=== PATIENT | female | born 1990 | race Caucasian/White ===

== ENCOUNTER 2016-12-13 16:51 | Inpatient (IN) | payer OTHER ==
[~2016-12-13] VITALS: Ht 167.6 cm; Wt 52.2 kg
[2016-12-14 01:08] VITALS: BP 117/82
[2016-12-14] MEDS ORDERED: MAG HYDROX/AL HYDROX/SIMETH 30 ML LIQUID UDC PO PRN (02:15)
[2016-12-14] MEDS ORDERED: MAGNESIUM HYDROXIDE 30 ML LIQUID UDC PO PRN (02:15)
[2016-12-14] MEDS ORDERED: BUPRENORPHINE HCL 2 MG TAB.SUBL SL PRN (02:15)
[2016-12-14] MEDS ORDERED: CLONIDINE HCL 0.1 MG TABLET PO PRN (02:15)
[2016-12-14] MEDS ORDERED: LOPERAMIDE HCL 2 MG CAPSULE PO PRN ×2 (02:15)
[2016-12-14] MEDS ORDERED: DIAZEPAM 10 MG TABLET PO PRN ×2 (02:15)
[2016-12-14] MEDS ORDERED: HYDROXYZINE PAMOATE 25 MG CAPSULE PO PRN (02:15)
[2016-12-14] MEDS ORDERED: DICYCLOMINE HCL 20 MG TABLET PO PRN (02:15)
[2016-12-14] MEDS ORDERED: ONDANSETRON ODT 4 MG TAB.RAPDIS SL PRN (02:15)
[2016-12-14] MEDS ORDERED: DIAZEPAM 5 MG TABLET PO PRN (02:15)
[2016-12-14] MEDS ORDERED: METHOCARBAMOL 750 MG TABLET PO PRN (02:15)
[2016-12-14] MEDS ORDERED: diphenhydrAMINE 50 MG CAPSULE PO PRN (02:15)
[2016-12-14] MEDS ORDERED: LORAZEPAM 2 MG/1 ML VIAL IM PRN (02:15)
[2016-12-14] MEDS ORDERED: PROMETHAZINE HCL 25 MG/1 ML VIAL IM PRN (02:15)
[2016-12-14] MEDS ORDERED: MIRALAX 17 GM POWD.PACK PO PRN (02:15)
[2016-12-14] MEDS ORDERED: IBUPROFEN 400 MG TABLET PO PRN (02:15)
[2016-12-14 04:00] VITALS: BP 99/60
[2016-12-14 08:00] VITALS: BP 108/69
[2016-12-14 08:17] LABS: BASOPHILS # (AUTO) 0.1 K/uL (0.0-0.2); BASOPHILS % (AUTO) 0.9 % (0.0-2.0); EOSINOPHILS # (AUTO) 0.1 K/uL (0.0-0.7); EOSINOPHILS % (AUTO) 1.5 % (0.0-7.0); HEMATOCRIT 36.7 % (37.0-47.0); HEMOGLOBIN 12.5 g/dL (12.0-16.0); LYMPHOCYTES # (AUTO) 1.8 K/uL (0.8-4.8); LYMPHOCYTES % (AUTO) 29.1 % (20.5-51.5); MEAN CORPUSCULAR HGB CONC 34 g/dL (32.0-37.0); MEAN CORPUSCULAR VOLUME 85.5 fL (81.0-99.0); MONOCYTES # (AUTO) 0.6 K/uL (0.1-1.30); MONOCYTES % (AUTO) 9.9 % (0.0-11.0); NEUTROPHILS # (AUTO) 3.7 K/uL (1.8-8.9); NEUTROPHILS % (AUTO) 58.6 % (38.5-71.5); PLATELET COUNT (AUTO) 223 K/uL (150-450); RED BLOOD CELL COUNT(AUTO) 4.29 MIL/uL (4.20-5.40); RED CELL DISTRIBUTION WIDTH 12.7 % (11.5-14.5); WHITE BLOOD COUNT (AUTO) 6.3 K/uL (4.0-11.2)
[2016-12-14 09:02] LABS: ETHANOL < 3 MG/DL (0-0)
[2016-12-14 09:04] LABS: ALANINE AMINOTRANSFERASE 43 U/L (14-59); ALBUMIN 3.3 g/dL (3.4-5.0); ALKALINE PHOSPHATASE 76 U/L (50-136); AMYLASE 20 U/L (25-115); ASPARTATE AMINOTRANSFERASE 33 U/L (15-37); BILIRUBIN,TOTAL 0.4 mg/dL (0.2-1.0); CALCIUM 8.4 mg/dL (8.5-10.1); CARBON DIOXIDE 28 mmol/L (21-32); CHLORIDE 101 mmol/L (98-107); CREATININE 0.6 mg/dL (0.6-1.3); GFR 122 mL/min (>60); GLUCOSE 85 mg/dL (74-106); LIPASE 53 U/L (73-393); MAGNESIUM 1.7 mg/dL (1.8-2.4); POTASSIUM 3.9 mmol/L (3.5-5.1); SODIUM SERUM 137 mmol/L (136-145); TOTAL PROTEIN, SERUM 6.8 g/dL (6.4-8.2); UREA NITROGEN, BLOOD 8 mg/dL (7-18)
[2016-12-14 09:17] LABS: HIV-1 p24 ANTIGEN NON REACTIVE (NONREACTIVE); HIV-1/2 ANTIBODY NON REACTIVE (NONREACTIVE)
[2016-12-14] MEDS ORDERED: GABA-534 PO ×2 (09:38)
[2016-12-14 12:00] VITALS: BP 113/65
[2016-12-14] MEDS ORDERED: LORAZEPAM 1 MG TABLET PO PRN ×2 (12:45)
[2016-12-14] MEDS: LORAZEPAM 1 MG TABLET PO SCH ×5 (13:00→21:29)
[2016-12-14] MEDS: BUPRENORPHINE HCL 2 MG TAB.SUBL SL SCH ×3 (13:00→21:28)
[2016-12-14 14:00] LABS: *AMPHETAMINE, URINE POSITIVE (NEGATIVE); *BARBITURATE, URINE NEGATIVE (NEGATIVE); *CANNABINOID, URINE NEGATIVE (NEGATIVE); *COCCAINE, URINE NEGATIVE (NEGATIVE); *OPIATE, URINE POSITIVE (NEGATIVE); *PHENCYCLIDINE SCREEN,URINE NEGATIVE (NEGATIVE)
[2016-12-14] MEDS: GABAPENTIN 300 MG CAPSULE PO SCH ×2 (15:00→21:28)
[2016-12-14 15:30] LABS: *URINE HCG, QUAL NEGATIVE (NEGATIVE)
[2016-12-14 16:00] VITALS: BP 116/65
[2016-12-14] MEDS ORDERED: MAGNESIUM OXIDE 400 MG TABLET PO ONE (16:36)
[2016-12-14] MEDS: MULTIVITAMINS,THERAPEUTIC TABLET PO SCH (18:08)
[2016-12-14 20:00] VITALS: BP 115/77
[2016-12-15] VITALS: BP 98/67
[2016-12-15] MEDS ORDERED: [UNRECOGNIZED DRUG - OTHER] (07:04)
[2016-12-15 08:00] VITALS: BP 104/65
[2016-12-15] MEDS ORDERED: TUBERCULIN,PURIF.PROT.DERIV. 5 TU/0.1 ML TEST ID ONE (09:00)
[2016-12-15] MEDS ORDERED: BUPRENORPHINE HCL 2 MG TAB.SUBL SL SCH (09:00)
[2016-12-15] MEDS: MULTIVITAMINS,THERAPEUTIC TABLET PO SCH (09:01)
[2016-12-15] MEDS: GABAPENTIN 300 MG CAPSULE PO SCH ×2 (09:01→14:59)
[2016-12-15] MEDS: LORAZEPAM 1 MG TABLET PO SCH ×3 (09:01→20:56)
[2016-12-15 12:00] VITALS: BP 111/59
[2016-12-15] MEDS: BUPRENORPHINE HCL 2 MG TAB.SUBL SL SCH ×2 (15:00→20:58)
[2016-12-15 16:00] VITALS: BP 111/71
[2016-12-15 20:00] VITALS: BP 110/73
[2016-12-15] MEDS ORDERED: GABAPENTIN 300 MG CAPSULE PO SCH (21:00)
[2016-12-16] VITALS: BP 109/71
[2016-12-16 04:00] VITALS: BP 124/70
[2016-12-16 08:38] VITALS: BP 103/76
[2016-12-16] MEDS: BUPRENORPHINE HCL 2 MG TAB.SUBL SL SCH ×3 (08:45→20:24)
[2016-12-16] MEDS: MULTIVITAMINS,THERAPEUTIC TABLET PO SCH (08:45)
[2016-12-16] MEDS: LORAZEPAM 1 MG TABLET PO SCH ×4 (08:45→20:24)
[2016-12-16] MEDS ORDERED: GABAPENTIN 300 MG CAPSULE PO SCH ×2 (09:00→15:00)
[2016-12-16 12:00] VITALS: BP 110/77
[2016-12-16] MEDS ORDERED: MAGNESIUM OXIDE 400 MG TABLET PO ONE (13:45)
[2016-12-16 16:00] VITALS: BP 118/77
[2016-12-16] MEDS: FLUTICASONE PROP NASAL SPRAY 16 GM BOTTLE NS SCH (17:20)
[2016-12-16 20:00] VITALS: BP 114/70
[2016-12-16] MEDS: GABAPENTIN 300 MG CAPSULE PO SCH (20:24)
[2016-12-17] VITALS: BP 119/69
[2016-12-17] MEDS: ACETAMINOPHEN 325 MG TABLET PO PRN (01:28)
[2016-12-17 03:06] LABS: HCV AB >11.0 s/co ratio (0.0-0.9); HEPATITIS B CORE AB, IgM Negative (Negative); HEPATITIS B SURFACE AG Negative (Negative)
[2016-12-17 04:00] VITALS: BP 114/71
[2016-12-17 08:00] VITALS: BP 124/76
[2016-12-17] MEDS: FLUTICASONE PROP NASAL SPRAY 16 GM BOTTLE NS SCH (09:00)
[2016-12-17] MEDS ORDERED: BUPRENORPHINE HCL 2 MG TAB.SUBL SL SCH (09:00)
[2016-12-17] MEDS: GABAPENTIN 300 MG CAPSULE PO SCH ×3 (09:21→20:28)
[2016-12-17] MEDS: MULTIVITAMINS,THERAPEUTIC TABLET PO SCH (09:21)
[2016-12-17] MEDS: LORAZEPAM 1 MG TABLET PO SCH ×3 (09:21→20:28)
[2016-12-17 10:09] LABS: CALCIUM 8.8 mg/dL (8.5-10.1); CREATININE 0.7 mg/dL (0.6-1.3); MAGNESIUM 1.8 mg/dL (1.8-2.4); POTASSIUM 4.1 mmol/L (3.5-5.1)
[2016-12-17] MEDS: GUAIFENESIN/DEXTROMETHORPHAN 5 ML UDC PO PRN (11:11)
[2016-12-17 12:00] VITALS: BP 115/71
[2016-12-17 16:00] VITALS: BP 115/75
[2016-12-17 20:00] VITALS: BP 125/79
[2016-12-18] VITALS: BP 106/74
[2016-12-18 04:00] VITALS: BP 112/72
[2016-12-18 08:00] VITALS: BP 114/74
[2016-12-18] MEDS: MULTIVITAMINS,THERAPEUTIC TABLET PO SCH (08:48)
[2016-12-18] MEDS: GUAIFENESIN/DEXTROMETHORPHAN 5 ML UDC PO PRN (08:49)
[2016-12-18] MEDS: GABAPENTIN 300 MG CAPSULE PO SCH ×2 (08:49→16:12)
[2016-12-18] MEDS: FLUTICASONE PROP NASAL SPRAY 16 GM BOTTLE NS SCH (08:49)
[2016-12-18] MEDS ORDERED: LORAZEPAM 1 MG TABLET PO SCH (09:00)
[2016-12-18 12:00] VITALS: BP 124/87
[2016-12-18] MEDS: ACETAMINOPHEN 325 MG TABLET PO PRN (14:48)
[2016-12-18 16:00] VITALS: BP 113/61
[2016-12-21 03:05] LABS: *AMPHETAMINE Positive (.); *BENZODIAZEPINES Positive (.); *CODEINE Positive (.); *HYDROMORPHONE Positive (.); *METHAMPHETAMINE Positive (.); *NORDIAZEPAM Negative (Cutoff=300); *OPIATES Positive ng/mL (Cutoff=300); *OXAZEPAM Positive (.)
== END 2016-12-18 18:42 | disposition left against medical advice (07) | DRG 894 ==
LOC: SRC 12-14 00:26
PROVIDERS: ADMIT Internal Medicine; ATTEND Internal Medicine
PROC: HZ2ZZZZ Detoxification Services for Substance Abuse Treatment (ICD-10-PCS; principal; 2016-12-14)
PROC: HZ31ZZZ Individual Counseling for Substance Abuse Treatment, Behavioral (ICD-10-PCS; 2016-12-17)
DX: F11.23 Opioid dependence with withdrawal (principal); F13.230 Sedative, hypnotic or anxiolytic dependence with withdrawal, uncomplicated; F15.23 Other stimulant dependence with withdrawal; Z59.0 Homelessness; B19.20 Unspecified viral hepatitis C without hepatic coma; F17.210 Nicotine dependence, cigarettes, uncomplicated
CPT/HCPCS: 36415; 71010; 80307; 80324; 80346; 80361; 83690; 83735; 84443; 84703; 85025; 86580; 86592; 86705; 86803; 87340; 87521; 87806; 93005; A4663; G6040-TC; J3535; Q0162